=== PATIENT | female | born 1980 | race Caucasian/White ===

== ENCOUNTER 2018-12-11 07:55 | Day surgery (SDC) | payer OTHER ==
[~2018-12-11] VITALS: Ht 157.5 cm; Wt 59.9 kg
[~2018-12-11 07:55] MED LIST: /MOM400 PO; ACET50TA PO; BALANCED SALT IRRIGATION SOLUTION 500ML BAG (FOR OR EYE MACHINE) As Ordered ONE; CEFUROXIME 1MG/0.1ML INTRACAMERAL INJ As Ordered ONE; DOCU10ELUD PO; DUOVISC (0.50ML VISCOAT/0.55ML PROVISC) OPHTH KIT As Ordered ONE; IBUP80TA PO; LIDOCAINE 0.75%/EPINEPHRINE 0.025% IN BSS 1ML SYR INTRACAMERAL (OR ONLY) As Ordered ONE; OFLOXACIN 0.3 % (OCUFLOX) OPTH SOL 5ML OD ONE; PHENYLEPHRINE 2.5% OPHTH SOL 2ML OD ONE; POVIDONE-IODINE 5% OPHTH PREP SOL 30ML As Ordered ONE; PRENTAB8 PO; PROPARACAINE 0.5% OPHTH SOL 15ML OD ONE; TROPICAMIDE 1% OPHTH SOLN 2ML OD ONE; TYLE500T53 OR; VITA100067 PO; VITA500T PO; VITA500T3 PO; anusol TOP
[2018-12-11] MEDS ORDERED: MIDAZOLAM INJ 2 MG/2 ML VIAL (J2250) As Ordered ONE (09:45)
[2018-12-11] MEDS ORDERED: fentaNYL 100 MCG/2 ML INJECTION (J3010) As Ordered ONE (09:45)
[2018-12-11 10:16] LABS: URINE PREG TEST NEGATIVE (NEGATIVE)
[2018-12-11] MEDS ORDERED: ONDANSETRON 4MG/2ML VIAL (J2405) As Ordered ONE (10:55)
[2018-12-11 11:10] VITALS: BP 116/66
[2018-12-11] MEDS ORDERED: ONDANSETRON 4MG/2ML VIAL (J2405) IV PRN (11:15)
--- NOTE | 2018-12-13 14:54 | RO ---
DATE OF PROCEDURE: 12/11/2018 PREOPERATIVE DIAGNOSIS: 1. Visually significant nuclear sclerotic cataract right eye. POSTOPERATIVE DIAGNOSIS: 1. Visually significant nuclear sclerotic cataract right eye. PROCEDURE PERFORMED: 1. Cataract extraction with use of phacoemulsification, and placement of intraocular lens, SV25T0, 23.5 D, right eye, with use of intraoperative aberrometry. SURGEON: Dr. Mikel Foster DIRECTOR VOLUNTEER SERVICES: ANESTHESIA: Local with monitored anesthesia care (MAC). COMPLICATIONS: None. POSTOPERATIVE CONDITION: Stable. INDICATION FOR SURGERY: 1. Blurred vision affecting patient's activities of daily living. DESCRIPTION OF PROCEDURE: The patient was seen in the preoperative area and properly identified. The correct operative eye was identified and marked. The patient received topical anesthetic, antibiotics, and topical dilating drops. The patient was then transferred to the operating room. The correct side was re-identified and a time-out was performed. The eye was prepped and draped in a sterile fashion. The eyelids were isolated with Tegaderm tape, and the lids were held open with an adjustable speculum. A 1.0 mm paracentesis incision was made. Intraocular preservative-free Shugarcaine was then injected into the anterior chamber through the paracentesis. Using a 2.4 mm sharp-tipped keratome, the anterior chamber was entered via a temporal clear corneal incision. A continuous curvilinear capsulorrhexis was created with Utrata forceps. Hydrodissection was performed with balanced salt solution (BSS) on a blunt cannula until the nucleus was able to rotate freely. The crystalline lens was phacoemulsified and aspirated. Irrigation/aspiration was used to remove the cortical material. Cohesive viscoelastic was placed into the capsular bag to deepen it. The Optiwave Refractive Analysis (ORA) device was turned on, two sets of measurements were obtained, and the implant power was confirmed. The implant was placed into the capsular bag and allowed to unfold. Placement was confirmed by visualizing the anterior capsulorrhexis. Irrigation/aspiration was used to remove the viscoelastic. The clear corneal incision was hydrated with BSS on a blunt cannula. The lens was well positioned. The incisions were then tested for leaks and found to be negative. The eye was then palpated for appropriate pressure and adjusted accordingly with BSS. The eyelid speculum was then carefully removed. A shield was placed over the eye. The patient tolerated the procedure well and was discharged to the recovery unit in a stable condition. KP
== END 2018-12-11 11:28 | disposition home or self-care (01) ==
LOC: M SDC 07:55
PROVIDERS: ATTEND Ophthalmology
DX: H25.11 Age-related nuclear cataract, right eye (principal)
CPT/HCPCS: 66984; 84703; J2250; J2405; J3010

== ENCOUNTER → 2019-07-13 | Outpatient (REF) | payer OTHER ==
[~2019-07-13] MED LIST changes: -/MOM400 PO; -ACET50TA PO; -BALANCED SALT IRRIGATION SOLUTION 500ML BAG (FOR OR EYE MACHINE) As Ordered ONE; -CEFUROXIME 1MG/0.1ML INTRACAMERAL INJ As Ordered ONE; +CYAN500T8 PO; -DOCU10ELUD PO; +DOCU5LIQ PO; -DUOVISC (0.50ML VISCOAT/0.55ML PROVISC) OPHTH KIT As Ordered ONE; -LIDOCAINE 0.75%/EPINEPHRINE 0.025% IN BSS 1ML SYR INTRACAMERAL (OR ONLY) As Ordered ONE; +MAPA500T17 PO; +MILK10SU PO; -OFLOXACIN 0.3 % (OCUFLOX) OPTH SOL 5ML OD ONE; -PHENYLEPHRINE 2.5% OPHTH SOL 2ML OD ONE; -POVIDONE-IODINE 5% OPHTH PREP SOL 30ML As Ordered ONE; -PROPARACAINE 0.5% OPHTH SOL 15ML OD ONE; -TROPICAMIDE 1% OPHTH SOLN 2ML OD ONE; -VITA500T3 PO
[2019-07-13 11:46] LABS: ALBUMIN 3.7 GM/DL (3.2-5.2); ALT/SGPT 23 U/L (12-78); BILIRUBIN,TOTAL 0.5 MG/DL (0.2-1.0); BLOOD UREA NITROGEN 8 MG/DL (7-18); CALCIUM LEVEL 8.6 MG/DL (8.5-10.1); CARBON DIOXIDE LEVEL 29 MEQ/L (21-32); CHLORIDE LEVEL 107 MEQ/L (98-107); CHOLESTEROL LEVEL 147 MG/DL (<200); CHOLESTEROL RISK RATIO 1.597 (<5); CREATININE FOR GFR 0.81 MG/DL (0.55-1.30); GLOMERULAR FILTRATION RATE > 60.0 (>60); GLUCOSE, FASTING 96 MG/DL (70-100); HDL CHOLESTEROL 92 MG/DL (>40); HEMATOCRIT 40.3 % (36.0-47.0); HEMOGLOBIN 13.4 g/dl (12.0-15.5); LDL CHOLESTEROL 48 MG/DL (<100); MEAN CORPUSCULAR HEMOGLOBIN 32.6 pg (27.0-33.0); MEAN CORPUSCULAR HGB CONC 33.3 g/dl (32.0-36.5); MEAN CORPUSCULAR VOLUME 98.1 fl (80.0-96.0); NON-HDL-C 55 MG/DL; PLATELET COUNT, AUTOMATED 195 10^3/uL (150-450); RED BLOOD COUNT 4.11 10^6/uL (4.00-5.40); SODIUM LEVEL 142 MEQ/L (136-145); TOTAL PROTEIN 6.7 GM/DL (6.4-8.2); TRIGLYCERIDES LEVEL 36 MG/DL (<150); WHITE BLOOD COUNT 5.1 10^3/uL (4.0-10.0)
[2019-07-13 11:54] LABS: TOTAL 25(OH) VITAMIN D 29.5 NG/ML (30.0-100.0)
== END ==
LOC: M SFHCCLAY 07:21
PROVIDERS: ATTEND Nurse Practitioner Family
DX: G25.81 Restless legs syndrome (principal); Z13.6 Encounter for screening for cardiovascular disorders; E55.9 Vitamin D deficiency, unspecified

== ENCOUNTER → 2019-07-22 | Outpatient (REF) | payer OTHER | LOC: M SFHCCLAY 10:15 | PROVIDERS: ATTEND Nurse Practitioner Family | DX: G25.81 Restless legs syndrome (principal) ==

== ENCOUNTER 2020-11-12 09:01 | Emergency (ER) | payer OTHER ==
[~2020-11-12] VITALS: Ht 157.5 cm; Wt 58.2 kg
[~2020-11-12 09:01] MED LIST changes: +CYAN500T14 PO; -CYAN500T8 PO; +VITA-243 PO; -VITA500T PO
--- OUTSIDE RECORDS SUMMARY | 2020-11-12 09:08 | CCD ---
Author Author [facility] Organization [facility] Address Unknown Phone Unavailable Care Team Providers Care Electronics Technology Department Chair Name Role Phone SYMENOW, G CHRISTOPHER PA Unavailable Unavailable SYMENOW, G CHRISTOPHER PA Unavailable Unavailable SYMENOW, G CHRISTOPHER PA Unavailable Unavailable SYMENOW, G CHRISTOPHER PA Unavailable Unavailable SYMENOW, G CHRISTOPHER PA Unavailable Unavailable SYMENOW, G CHRISTOPHER PA Unavailable Unavailable SYMENOW, G CHRISTOPHER PA Unavailable Unavailable SYMENOW, G CHRISTOPHER PA Unavailable Unavailable SYMENOW, G CHRISTOPHER PA Unavailable Unavailable SYMENOW, G CHRISTOPHER PA Unavailable Unavailable SYMENOW, G CHRISTOPHER PA Unavailable Unavailable SYMENOW, G CHRISTOPHER PA Unavailable Unavailable SYMENOW, G CHRISTOPHER PA Unavailable Unavailable SYMENOW, G CHRISTOPHER PA Unavailable Unavailable SYMENOW, G CHRISTOPHER PA Unavailable Unavailable SYMENOW, G CHRISTOPHER PA Unavailable Unavailable SYMENOW, G CHRISTOPHER PA Unavailable Unavailable Re-disclosure Warning The records that you are about to access may contain information from federally-assisted alcohol or drug abuse programs. If such information is present, then the following federally mandated warning applies: This information has been disclosed to you from records protected by federal confidentiality rules (42 CFR part 2). The federal rules prohibit you from making any further disclosure of this information unless further disclosure is expressly permitted by the written consent of the person to whom it pertains or as otherwise permitted by 42 CFR part 2. A general authorization for the release of medical or other information is NOT sufficient for this purpose. The Federal rules restrict any use of the information to criminally investigate or prosecute any alcohol or drug abuse patient.The records that you are about to access may contain highly sensitive health information, the redisclosure of which is protected by Article 27-F of the [facility] Public Health law. If you continue you may have access to information: Regarding HIV / AIDS; Provided by facilities licensed or operated by the [facility] Office of Mental Health; or Provided by the [facility] Office for People With Developmental Disabilities. If such information is present, then the following [facility] mandated warning applies: This information has been disclosed to you from confidential records which are protected by state law. State law prohibits you from making any further disclosure of this information without the specific written consent of the person to whom it pertains, or as otherwise permitted by law. Any unauthorized further disclosure in violation of state law may result in a fine or chcf sentence or both. A general authorization for the release of medical or other information is NOT sufficient authorization for further disc losure. Encounters Encounter Providers Location Date Indications Data Source(s ) Emergency Attender: PAMELA MALONE 11/13/2013 10:14:00 AM [facility] - 11/13/2013 12:37:00 PM [facility] Medications Medication Brand Name Start Date Product Form Dose Route Admi nistrative Instructions Pharmacy Instructions Status Indications Reaction Description Data Source(s) 1 mg 09/07/2019 12:00:00 AM EST tablet 30 TAKE 1 TABLET BY MOUTH 1-3 HOURS BEFORE BEDTIME TAKE 1 TABLET BY MOUTH 1-3 HOURS BEFORE BEDTIME SOLD: 2018 [facility] 0.25-35 mg-mcg 08/25/2019 12:00:00 AM EST tablet 28 TAKE ONE TABLET BY MOUTH EVERY DAY DIRECTED TAKE ONE TABLET BY MOUTH EVERY DAY DIRECTED SOLD: 10/22/2019 [facility] 0.25-35 mg-mcg 08/25/2019 12:00:00 AM EST tablet 28 TAKE ONE TABLET BY MOUTH EVERY DAY DIRECTED TAKE ONE TABLET BY MOUTH EVERY DAY DIRECTED SOLD: 12/21/2019 [facility] 0.25-35 mg-mcg 08/25/2019 12:00:00 AM EST tablet 28 TAKE ONE TABLET BY MOUTH EVERY DAY DIRECTED TAKE ONE TABLET BY MOUTH EVERY DAY DIRECTED SOLD: 09/25/2019 [facility] 0.25-35 mg-mcg 08/25/2019 12:00:00 AM EST tablet 28 TAKE ONE TABLET BY MOUTH EVERY DAY DIRECTED TAKE ONE TABLET BY MOUTH EVERY DAY DIRECTED SOLD: 11/22/2019 [facility] Insurance Providers Payer name Policy type / Coverage type Policy ID Covered green party ID Covered green party's relationship to chavira Policy Chavira Plan Information [facility] [place] [id number] HU2 [id number] DO NOT USE [id number] SPO [id number] [facility] [id number] S [id number] [facility] [id number] S [id number] [facility] [id number] SPO [id number] ANSI-Commercial [id number] [facility] [place] [id number] 2 [id number] ANSI-Commercial [id number] ANSI-Commercial [id number] [facility] [place] [id number] SP [id number] [facility] [place] [id number] SP [id number] [employer] [id number] HU2 [id number] [employer] UNAVAILABLE UNAVAILABLE SELF PAY [id number] HU2 [id number] [employer] COMM [id number] SPO [id number] [employer] [id number] Vital Signs ID Date Data Source [id number] 06/15/2020 01:18:00 PM EDT [facility] Name Value Range Interpretation Code Description Data Source(s) WEIGHT 64.86 kilos 64.86 kilos [facility] HEIGHT 157.48 centimeters 157.48 centimeter [facility]
--- OUTSIDE RECORDS SUMMARY | 2020-11-12 09:19 | CCD ---
Author Author [facility] Organization [facility] Address Unknown Phone Unavailable Care Team Providers Care Overlock Collar Setter Name Role Phone SYMENOW, G CHRISTOPHER PA [...] is protected by Article 27-F of the [facility] Public Health law. If you continue you may have access to information: Regarding HIV / AIDS; Provided by facilities licensed or operated by the [facility] Office of Mental Health; or Provided by the [facility] Office for People With Developmental Disabilities. If such information is present, then the following [facility] mandated warning applies: This information has [...] law may result in a fine or fpc sentence or both. A general authorization for the release of medical or other information is NOT sufficient authorization for further disc losure. Encounters Encounter Providers Location Date Indications Data Source(s ) Emergency Attender: PAMELA MALONE 11/13/2013 10:14:[address] [facility] - 11/13/2013 12:37:00 PM [facility] Medications Medication Brand Name Start Date Product [...] type / Coverage type Policy ID Covered libertarian ID Covered libertarian's relationship to chavira Policy Chavira Plan Information GRAY [id number] SP [id number] [address] [facility] [place] [id number] HU2 [id number] DO NOT USE [id number] SPO [id number] [facility] [id number] S [id number] [facility] [id number] S [id number] [facility] [id number] SPO [id number] ANSI-Commercial [id number] [facility] [place] [id number] HU2 [id number] ANSI-Commercial [id number] ANSI-Commercial [id number] [facility] [place] [id number] SP [id number] [facility] [place] [id number] SP [id number] [employer] [id number] HU2 [id number] [employer] UNAVAILABLE UNAVAILABLE SELF PAY [id number] [id number] [employer] COMM [id number] SPO [id number] [employer] [id number] [id number] Vital Signs ID Date Data Source [id number] 06/15/2020 01:18:00 PM EDT [facility] Name Value Range Interpretation Code Description Data Source(s) WEIGHT 64.86 kilos 64.86 kilos [facility] HEIGHT 157.48 centimeters 157.48 centimeter [facility]
[2020-11-12 12:58] VITALS: BP 124/59
[2020-11-12 13:09] LABS: CHLAMYDIA DNA AMPLIFICATION NEGATIVE (NEGATIVE); GC DNA AMPLIFICATION NEGATIVE (NEGATIVE)
--- NOTE | 2020-11-12 13:29 | REP ---
INDICATION: 7 weeks . COMPARISON: None. TECHNIQUE: Real-time sonographic evaluation of pelvis performed. FINDINGS: There is a single living intrauterine gestation with an estimated gestational age of 7 weeks 0 days based on a crown-rump length of 9 mm. EDC 07/01/2021. heart rate is 122 beats per minute. There is no subchorionic hemorrhage. There is a left corpus luteum 2 cm in diameter, with no torsion in the left ovary with duplex Doppler evaluation. IMPRESSION: Viable intrauterine gestation 7 weeks 0 days gestational age, heart rate 122 beats per minute. EDC 07/01/2021. <Electronically signed by Giovany Fatima > 11/12/20 [id number]
== END 2020-11-12 13:03 | disposition home or self-care (01) ==
LOC: M ED 09:01
DX: O23.591 Infection of other part of genital tract in pregnancy, first trimester (principal); A59.01 Trichomonal vulvovaginitis; Z87.59 Personal history of other complications of pregnancy, childbirth and the puerperium; Z3A.01 Less than 8 weeks gestation of pregnancy

== ENCOUNTER → 2020-12-08 | Outpatient (REF) | payer OTHER ==
[2020-12-08 13:57] LABS: HEMATOCRIT 44.1 % (36.0-47.0); HEMOGLOBIN 14.6 g/dl (12.0-15.5); MEAN CORPUSCULAR HEMOGLOBIN 32.3 pg (27.0-33.0); MEAN CORPUSCULAR HGB CONC 33.1 g/dl (32.0-36.5); MEAN CORPUSCULAR VOLUME 97.6 fl (80.0-96.0); PLATELET COUNT, AUTOMATED 241 10^3/uL (150-450); RED BLOOD COUNT 4.52 10^6/uL (4.00-5.40); WHITE BLOOD COUNT 9.8 10^3/uL (4.0-10.0)
[2020-12-08 14:22] LABS: ALBUMIN 3.8 GM/DL (3.2-5.2); ALT/SGPT 29 U/L (12-78); BILIRUBIN,DIRECT 0.2 MG/DL (0.0-0.2); BILIRUBIN,TOTAL 0.4 MG/DL (0.2-1.0); TOTAL PROTEIN 6.8 GM/DL (6.4-8.2)
[2020-12-08 14:30] LABS: TOTAL 25(OH) VITAMIN D 15.6 NG/ML (30.0-100.0)
[2020-12-08 15:09] LABS: HEPATITIS C VIRUS ABY INDEX < 0.0 INDEX (<0.8)
[2020-12-08 15:10] LABS: HIV 1&2 SCREEN CENTAUR NEGATIVE (NEGATIVE)
== END ==
LOC: M PLALAB 11:06
PROVIDERS: ATTEND Advanced Practice Midwife
DX: Z3A.11 11 weeks gestation of pregnancy (principal); L29.9 Pruritus, unspecified; E55.9 Vitamin D deficiency, unspecified

== ENCOUNTER → 2021-01-09 | Outpatient (CLI) | payer OTHER | LOC: M PLALAB 10:57 | PROVIDERS: ATTEND Advanced Practice Midwife | DX: O09.512 Supervision of elderly primigravida, second trimester (principal) ==

== ENCOUNTER → 2021-01-30 | Outpatient (CLI) | payer MEDICAID ==
--- NOTE | 2021-01-30 15:16 | REP ---
INDICATION: ANATOMY. Sixteen weeks gestation. SILVIA 25 June 2021. COMPARISON: Comparison sonography November 12, 2020.. TECHNIQUE: Transabdominal obstetric sonography. FINDINGS: Scanning through the gravid uterus demonstrates a viable single intrauterine gestation in breech lie. motion is observed and heart rate is recorded at 147 beats per minute. A posterior placenta is seen, grade 0, without evidence of placenta previa. Closed cervical length is measured at 2.4 cm transabdominally. No extrauterine abnormality is observed. Amniotic fluid is subjectively normal. No anomaly is seen. The following anatomic structures are identified and felt to be sonographically unremarkable: cranium, choroid plexus, cavum, cerebellum and posterior fossa, face and profile, lungs, four-chamber heart with left and right ventricular outflow tract views, diaphragm, left-sided stomach, abdominal wall cord insertion, three-vessel umbilical cord, kidneys and bladder, spine, and upper and lower extremities. Biometry chart: BPD 4.3 cm, 19 weeks 0 days Head circumference 16.4 cm, 19 weeks 1 day Abdominal circumference 14.5 cm, 19 weeks 6 days Femur length 2.8 cm, 18 weeks 3 days Humeral length 2.7 cm, 18 weeks 6 days HC AC ratio normal 1.13 Cephalic index normal 0.71 Estimated weight 277 g, 0 lb 9 oz, 47th percentile for 19 weeks 1 day IMPRESSION: Viable single intrauterine gestation at 19 weeks 0 days by today's composite sonographic criteria. SILVIA by today's sonography June 26, 2021. No complication identified. Expected gestational age estimate based on prior sonography is 18 weeks 2 days SILVIA by prior sonography 01 July 2021. Expected gestational age estimate based on provided SIVLIA of 25 June 2021 is 19 weeks 1 day. <Electronically signed by Pelon cShilling > 01/30/21 [id number]
== END ==
LOC: M WHC 13:25
PROVIDERS: ATTEND Advanced Practice Midwife
DX: Z36.89 Encounter for other specified antenatal screening (principal); Z3A.16 16 weeks gestation of pregnancy

== ENCOUNTER → 2021-03-03 | Outpatient (CLI) | payer MEDICAID, OTHER ==
--- NOTE | 2021-03-03 13:06 | REP ---
INDICATION: CERVICAL LENGTH. COMPARISON: None. TECHNIQUE: Transabdominal imaging was utilized along with transvaginal scanning for optimal cervical length measurement. FINDINGS: The optimal cervical length measurement is 3.0 cm. Doppler interrogation of the heart is a heart rate of 132 beats per minute. The subjective amniotic fluid volume is within normal limits. The placenta is posterior and not low-lying. The presentation is cephalic. IMPRESSION: Limited OB ultrasound as described above. <Electronically signed by Tacos Cochran > 03/03/21 [id number]
== END ==
LOC: M WHC 11:06
PROVIDERS: ATTEND Advanced Practice Midwife
DX: O09.522 Supervision of elderly multigravida, second trimester (principal); Z3A.00 Weeks of gestation of pregnancy not specified

== ENCOUNTER → 2021-03-08 | Outpatient (REF) | payer OTHER ==
[2021-03-08 16:16] LABS: HEMOGLOBIN 12.4 g/dl (12.0-15.5); MEAN CORPUSCULAR HEMOGLOBIN 33.7 pg (27.0-33.0); MEAN CORPUSCULAR HGB CONC 33.5 g/dl (32.0-36.5); MEAN CORPUSCULAR VOLUME 100.5 fl (80.0-96.0); PLATELET COUNT, AUTOMATED 234 10^3/uL (150-450); RED BLOOD COUNT 3.68 10^6/uL (4.00-5.40); WHITE BLOOD COUNT 12.9 10^3/uL (4.0-10.0)
== END ==
LOC: M PLALAB 11:24
PROVIDERS: ATTEND Obstetrics & Gynecology
DX: Z34.02 Encounter for supervision of normal first pregnancy, second trimester (principal)

== ENCOUNTER → 2021-04-19 | Outpatient (CLI) | payer OTHER, MEDICAID | LOC: M LAB 04-11 07:23 | PROVIDERS: ATTEND Obstetrics & Gynecology | DX: Z34.02 Encounter for supervision of normal first pregnancy, second trimester (principal) ==

== ENCOUNTER → 2021-04-28 | Outpatient (CLI) | payer OTHER, MEDICAID ==
--- NOTE | 2021-04-28 13:05 | REP ---
INDICATION: UTERINE SIZE/DATE DISCREPANCY/GROWTH. TECHNIQUE: Transabdominal scanning FINDINGS: Multiple ultrasonographic images of the gravid uterus shows a single living intrauterine gestation in variable positions. Doppler interrogation of the heart shows a heart rate of 136 beats per minute. The placenta is posterior and not low-lying. The cervix measures 4.6 cm in length and is closed. The subjective amniotic fluid volume is increased. The calculated amniotic fluid index is 31.7 within expected range 8.7 to 24.1. Doppler interrogation of the umbilical artery shows an A\B ratio of 2.79. This is within the normal range. BPD: 8 cm 32 weeks 2 days HC: 29.7 cm 32 weeks 6 days AC: 28.5 cm 32 weeks 4 days FL: 6 cm 31 weeks 2 days The estimated weight is 1915 g which is at the 53rd percentile for a 31 week 5 day gestational age. IMPRESSION: Limited OB ultrasound showing a single living intrauterine gestation as described above with an estimated gestational age of 32 weeks 1 day via composite criteria and an estimated date of delivery of 06/22/2021 by today's exam. There is evidence of polyhydramnios as described above. <Electronically signed by Tacos Cochran > 04/28/21 [id number]
== END ==
LOC: M WHC 11:05
PROVIDERS: ATTEND Advanced Practice Midwife
DX: O26.843 Uterine size-date discrepancy, third trimester (principal); Z3A.32 32 weeks gestation of pregnancy

== ENCOUNTER → 2021-05-30 | Outpatient (REF) | payer OTHER, MEDICAID ==
[~2021-05-30] MED LIST changes: +PRENTAB9 PO; +TUMS500C PO
== END ==
LOC: M SFHCWAGY 12:52
PROVIDERS: ATTEND Obstetrics & Gynecology
DX: Z34.93 Encounter for supervision of normal pregnancy, unspecified, third trimester (principal); Z3A.36 36 weeks gestation of pregnancy

== ENCOUNTER → 2021-06-06 | Outpatient (CLI) | payer OTHER, MEDICAID ==
--- NOTE | 2021-06-06 14:00 | REP ---
INDICATION: BPP/DIABETES. COMPARISON: 05/30/2021. TECHNIQUE: Real-time sonographic evaluation of gravid uterus performed. FINDINGS: There is a single living intrauterine gestation estimated gestational age 37 weeks 2 days, EDC 06/25/2021. position cephalic. Placenta posterior and grade 2 with no previa. heart rate 130 beats per minute. There is poly hydramnios, LARA 26.9, normal range 7.4-24.3. Biophysical profile score 8/8. SD ratio umbilical artery 2.30, normal 1.58-3.41, RI 0.56 normal 0.43-0.70. IMPRESSION: Biophysical profile score 8/8. Polyhydramnios. <Electronically signed by Giovany Fatima > 06/06/21 [id number]
== END ==
LOC: M WHC 12:45
PROVIDERS: ATTEND Obstetrics & Gynecology
DX: O40.3XX0 Polyhydramnios, third trimester, not applicable or unspecified (principal); Z3A.37 37 weeks gestation of pregnancy

== ENCOUNTER 2021-06-07 12:16 | Inpatient (IN) | payer MEDICAID, OTHER ==
[2021-06-07] VITALS (19 sets, daily range): BP systolic 117–179; BP diastolic 62–92
[~2021-06-07] VITALS: Ht 157.5 cm; Wt 71.2 kg
[~2021-06-07 12:16] MED LIST changes: -PRENTAB9 PO; -TUMS500C PO
[2021-06-07] MEDS ORDERED: OXYTOCIN DRIP 30 UNITS in IV 1 EA IV PRN ×4 (13:05)
[2021-06-07] MEDS ORDERED: TRANEXAMIC ACID INJection 1,000 MG in NS 100 ML IV PRN (13:05)
[2021-06-07] MEDS ORDERED: METHYLERGONOVINE MALEATE 0.2 MG/ML VIAL (J2210) IM PRN (13:05)
[2021-06-07] MEDS ORDERED: OXYTOCIN INJ 10 UNITS/ML VIAL (J2590) IM PRN (13:05)
[2021-06-07] MEDS ORDERED: CARBOPROST TROMETHAMINE 250 MCG/ML AMP IM PRN (13:05)
[2021-06-07] MEDS ORDERED: LIDOCAINE 1% MDV 20ML VIAL INFIL PRN (13:05)
[2021-06-07] MEDS ORDERED: OXYTOCIN DRIP 30 UNITS in IV 1 EA IV SCH (13:05)
[2021-06-07] MEDS ORDERED: PRENTAB9 PO (13:29)
[2021-06-07] MEDS ORDERED: TUMS500C PO (13:29)
[2021-06-07] MEDS: LR 1,000 ML IV SCH ×2 (14:08→17:49)
--- NOTE | 2021-06-07 14:16 | HPE ---
HISTORY AND PHYSICAL DATE OF ADMISSION: 06/07/2021 HISTORY OF PRESENT ILLNESS: Cheryl is a 41-year-old 5 para 1-0-3-1 at 37 weeks and 3 days gestation with an EDC of 06/25/2021 based on last menstrual period and confirmed by first trimester ultrasound. She presents to Labor and Delivery today with a report of spontaneous rupture of membranes at 11:05 a.m., reports the fluid as clear and odorless. She does note some pink bloody show. She reports continued leakage of fluid. Denies heavy vaginal bleeding and reports some contractions that started shortly after her rupture. The fetus has been active. Her care was initiated at [facility] in the first trimester. course was complicated by gestational diabetes, advanced maternal age, polyhydramnios, vaping throughout her , asthma, depression and vitamin D deficiency. OBSTETRIC HISTORY: Miscarriages x3, dates unavailable. June 01, 2012: 8 pound, 8 ounce male, vaginal delivery, forceps delivery, reports an allergy to the suture. OBSTETRIC LABS: A positive, antibody screen negative, syphilis negative, gonorrhea and chlamydia negative. Hepatitis B surface antigen negative. Hepatitis C antibody nonreactive. HIV is nonreactive. Rubella immune. Gestational diabetic screening 193, 3 hour glucose tolerance test fasting 88, 1 hour 182, 2 hour 218, and 3 hour 115. GBS is negative. PAST MEDICAL HISTORY: Depression, tobacco use, asthma, restless leg syndrome, vitamin D deficiency. PAST SURGICAL HISTORY: Exploratory laparotomy and cataract. FAMILY HISTORY: CVA, hypertension, vascular issues, lupus. SOCIAL HISTORY: Patient is a nicotine user through vaporizer, denies drug use, denies alcohol use, no history of abuse, physical, sexual or emotional. She does have a history of trichomonas early in the . ALLERGIES: Suture material, the exact suture unknown, and Wellbutrin which causes hives. CURRENT MEDICATIONS: vitamin. OBJECTIVE: Temperature 97.5, 94, 16, blood pressure is 133/87. She is alert and oriented x3. She does not appear uncomfortable. The heart rate is 135 with moderate variability, no accelerations, no decelerations, contractions appear to be every 4 to 5 minutes. Her abdomen is gravid, cephalic presentation. Estimated weight is 7 pounds. Sterile speculum exam is deferred, grossly ruptured, clear fluid, sterile vaginal exam, 1 cm dilated, 80% effaced, -2 station, vertex well applied to cervix. ASSESSMENT: Intrauterine at 37 and 3/7th weeks, premature rupture of membranes, heart rate Category 1, PROM. PLAN: Admit the patient to Labor and Delivery, routine laboratories, saline lock at this time, out of bed ad nimo, clear liquid diet, plan to start IV Pitocin to augment/induce her labor. The risks, benefits and alternatives have been reviewed. She and her mother's questions have been answered. She has been verbally consented for emergency surgery and blood products if they are necessary. I do anticipate active labor and a vaginal delivery.
[2021-06-07 14:50] LABS: HEMOGLOBIN 12.4 g/dl (12.0-15.5); MEAN CORPUSCULAR HEMOGLOBIN 33.5 pg (27.0-33.0); MEAN CORPUSCULAR HGB CONC 33.5 g/dl (32.0-36.5); PLATELET COUNT, AUTOMATED 271 10^3/uL (150-450); WHITE BLOOD COUNT 15.4 10^3/uL (4.0-10.0)
[2021-06-07] MEDS ORDERED: FENTANYL 2MCG/ML ROPIVACAINE 0.2% IN 0.9% NACL 100ML IVBAG As Ordered ONE (18:02)
[2021-06-07] MEDS ORDERED: EPIDURAL/PCA KEYS XX PRN (18:45)
[2021-06-07] MEDS ORDERED: EPIDURAL COMMENT XX SCH (18:45)
[2021-06-07] MEDS ORDERED: LACTATED RINGER'S 1000 ML IV PRN (18:45)
[2021-06-07] MEDS ORDERED: REFRIGERATOR IV KEYS XX PRN (18:45)
[2021-06-07] MEDS ORDERED: ePHEDrine SULFATE 25 MG/5 ML(5MG/ML) SYRINGE IV PRN (18:45)
[2021-06-07] MEDS ORDERED: diphenhydrAMINE 50MG/ML VIAL (J1200) IV PRN (18:45)
[2021-06-07] MEDS ORDERED: FENTANYL/ROPIVACAINE/NACL BAG 100 ML EPIDURAL SCH (18:45)
[2021-06-07] MEDS ORDERED: ONDANSETRON 4MG/2ML VIAL IV PRN (18:45)
[2021-06-07] MEDS ORDERED: NALOXONE INJ 0.4MG/1ML VIAL (J2310 PER 1MG) IV PRN (18:45)
[2021-06-07 20:37] LABS: CORD GAS HCO3 A 18.2 MEQ/L; CORD GAS O2 SAT A 67.7 %; CORD GAS PCO2 A 62.9 mmHg; CORD GAS PH A 7.079 UNITS; CORD GAS PO2 A 35.1 mmHg; CORD GAS SBC A 14.2 MEQ/L; CORD GAS TCO2 A 20.1 MEQ/L
[2021-06-07 20:40] LABS: CORD GAS ABE V -6.9; CORD GAS HCO3 V 21.1 MEQ/L; CORD GAS O2 SAT V 51.3 %; CORD GAS PCO2 V 50.5 mmHg; CORD GAS PH V 7.238 UNITS; CORD GAS PO2 V 21.9 mmHg; CORD GAS SBC V 17.8 MEQ/L; CORD GAS TCO2 V 22.6 MEQ/L
[2021-06-07] MEDS ORDERED: IBUPROFEN 600MG TAB PO PRN (20:40)
[2021-06-07] MEDS ORDERED: DIBUCAINE 1% OINTMENT 30GM TOP PRN (20:40)
[2021-06-07] MEDS ORDERED: DOCUSATE SODIUM 100MG CAPSULE PO PRN (20:40)
[2021-06-07] MEDS ORDERED: RHOGAM 300 MCG (1500 IU) INJ (J2790) IM SCH (20:40)
[2021-06-07] MEDS ORDERED: MEASLES,MUMPS,RUBELLA VACCINE INJ (MMR-II) (90707) SC SCH (20:40)
[2021-06-07] MEDS ORDERED: METHYLERGONOVINE MALEATE 0.2 MG TAB PO PRN (20:40)
[2021-06-07] MEDS ORDERED: ACETAMINOPHEN TAB 650MG DOSE (2X325MG) PO PRN (20:40)
[2021-06-07] MEDS ORDERED: IBUPROFEN 800 MG TAB PO PRN (20:40)
[2021-06-07] MEDS ORDERED: ACETAMINOPHEN 500 MG TAB PO PRN (20:40)
--- NOTE | 2021-06-07 20:55 | DN ---
DELIVERY NOTE DATE OF DELIVERY: 06/07/2021 Cheryl is a 41-year-old 5, para 2-0-3-2 now, who is admitted to labor and delivery with premature rupture of membranes. Intravenous (IV) Pitocin was started, and labor did ensue. She used an epidural for her labor coping. She reached full dilation of 195. She pushed to a normal spontaneous vaginal delivery of a live female in left occiput anterior (OPAL) position with restitution to left occiput transverse (LOT) position at 2019. There was a nuchal cord times on reduced manually at the time of delivery. Shoulders delivered with gentle downward traction, and corpus immediately followed. Mouth and nares were bulb suctioned, and the was placed on the maternal abdomen crying and active. Cord was clamped by two, cut by the father of the baby under my direction. Cord blood and cord gases were obtained. Cord gases are pending at this time. Spontaneous expulsion of an intact placenta with 3-vessel cord by Rios mechanism was at 2023. Uterine hemostasis achieved with IV Pitocin rapid infusion and uterine fundal massage. Estimated blood loss 450 mL. Perineum and vagina inspected and noted to be intact. [place] female. Weight is pending. scores 8 and 9. Mother is going to breast-feed her daughter, and the family have named her Anjelica. At the close of delivery, lap counts, needle counts, and instrument counts were correct and verified.
[2021-06-08 06:05] VITALS: BP 137/71
[2021-06-08] MEDS: PRENATAL VITAMINS CHEWABLE TABLET PO SCH (07:52)
--- NOTE | 2021-06-08 13:28 | IPNPDOC ---
Progress Note Date of Service: Jun 08, 2021 Day#: 1 Progress Note SUBJECT: Doing well without complaints. Ambulating, voiding and pain is well- controlled. Reports minimal lochia. OBJECTIVE: VITAL SIGNS: Within normal limits, afebrile. Alert and oriented times three. Abdomen: Fundus firm at U-2. Soft, NTTP. Ext: neg calf tenderness. ASSESSMENT: day #1 status post . Recovering in stable condition. PLAN: 1. Continue routine care 2. Discharge plans for tomorrow VS, I&O, 24H, Fishbone Vital Signs/I&O Vital Signs Date Time Temp Pulse Resp B/P (MAP) Pulse Ox O2 Delivery O2 Flow Rate FiO2 06/08/21 06:05 97.0 91 16 137/71 (93) 98 06/07/21 22:36 Room Air I&O- Last 24 Hours up to 6 AM 06/08/21 05:59 Intake Total 1040 ml Output Total 1000 ml Balance 40 ml Laboratory Data 24H LABS Laboratory Tests 2 06/07/21 14:11: Nucleated Red Blood Cells % (auto) 0.3H, Syphilis Serology NONREACTIVE, Cor onavirus (COVID-19)(PCR) NEGATIVE 06/07/21 20:32: Cord Arterial Blood pH 7.079, Cord Arterial Blood PCO2 62.9, Cord Arterial Blood PO2 35.1, Cord Arterial Blood HCO3 18.2, Cord Arterial Blood Total CO2 20.1, Cord Arterial Blood Base Excess -13.0, Cord Arterial Base Excess (Standard 14.2, Cord Arterial Bld Oxygen Saturation 67.7, Cord Venous Blood pH 7.238, Cord Venous Blood PCO2 50.5, Cord Venous Blood PO2 21.9, Cord Venous Blood HCO3 21.1, Cord Venous Blood Total CO2 22.6, Cord Venous Base Excess (Actual) -6.9, Cord Venous Base Excess (Standard) 17.8, Cord Venous Blood Oxygen Saturation 51.3 CBC/BMP Laboratory Tests 06/07/21 14:11 JENNIE BURDEN MD. Jun 08, 2021 13:28
[2021-06-08 17:46] VITALS: BP 122/60
[2021-06-09 05:19] VITALS: BP 122/64
[2021-06-09] MEDS: PRENATAL VITAMINS CHEWABLE TABLET PO SCH (08:42)
== END 2021-06-09 12:30 | disposition home or self-care (01) | DRG 560 ==
LOC: M LDO 12:16 → M LDI 12:58 → M OBS 21:52
PROVIDERS: ADMIT Advanced Practice Midwife; ATTEND Advanced Practice Midwife
PROC: 10E0XZZ Delivery of Products of Conception, External Approach (ICD-10-PCS; principal; 2021-06-07)
PROC: 3E033VJ Introduction of Other Hormone into Peripheral Vein, Percutaneous Approach (ICD-10-PCS; 2021-06-07)
DX: O24.429 Gestational diabetes mellitus in childbirth, unspecified control (principal); O40.3XX0 Polyhydramnios, third trimester, not applicable or unspecified; O09.523 Supervision of elderly multigravida, third trimester; Z37.0 Single live birth; Z3A.37 37 weeks gestation of pregnancy; F17.290 Nicotine dependence, other tobacco product, uncomplicated; O99.334 Smoking (tobacco) complicating childbirth; O42.02 Full-term premature rupture of membranes, onset of labor within 24 hours of rupture; O69.81X0 Labor and delivery complicated by cord around neck, without compression, not applicable or unspecified

== ENCOUNTER → 2021-07-20 | Outpatient (CLI) | payer OTHER ==
[~2021-07-20] MED LIST changes: +PRENTAB9 PO; +TUMS500C PO
== END ==
LOC: M LABSMTC 10:14
PROVIDERS: ATTEND Anesthesiology
DX: Z01.812 Encounter for preprocedural laboratory examination (principal); Z20.822 Contact with and (suspected) exposure to COVID-19

== ENCOUNTER 2021-08-15 09:52 | Emergency (ER) | payer MEDICAID, OTHER ==
[~2021-08-15] VITALS: Ht 157.5 cm; Wt 59.1 kg
[2021-08-15 09:52] VITALS: BP 142/60
[2021-08-15] MEDS ORDERED: AMPH1CAP14 (10:41)
[2021-08-15 11:45] LABS: RSV AMPLIFICATION NEGATIVE (NEGATIVE)
== END 2021-08-15 14:08 | disposition home or self-care (01) ==
LOC: M ED 09:52
DX: U07.1 COVID-19 (principal); Z88.8 Allergy status to other drugs, medicaments and biological substances; Z91.09 Other allergy status, other than to drugs and biological substances